=== PATIENT | female | born 1940 | race Caucasian/White ===

== ENCOUNTER 2023-10-02 20:48 | Emergency (ER) | payer MEDICARE, OTHER, SELFPAY ==
[2023-10-02 20:53] VITALS: BP 161/92; PULSE 79; TEMP 36.7; O2SAT 96; BMI 23.4
--- NOTE | 2023-10-02 21:37 | ED_ITS ---
HPI HPI - Extremity Injury (Lower) General Chief Complaint: Extremity Injury, Lower Stated Complaint: LOWER EXTREMITY INJURY Time Seen by Provider: 10/02/23 21:32 Source: patient Mode of arrival: Wheelchair Limitations: no limitations History of Present Illness HPI Narrative: patient presents complaining of right foot pain. points to red spot on the dorsum of her foot. States it was swollen and has a burning pain. Increased pain with bearing weight . Denies injury.No fever Related Data Allergies Allergy/AdvReac Type Severity Reaction Status Date / Time latex Allergy Mild Hives Verified 10/03/23 00:08 Opioid HPI Opioid Management Most Recent Pain and Opioid Data: Last Pain Scale 6 10/02/23 21:22 Review of Systems ROS Status of ROS 10 or more systems reviewed and unremark able except as noted in history and below Exam Constitutional Vital Signs, click to edit/add: Last Vital Signs Temp 98.1 F 10/02/23 20:53 Pulse 79 10/02/23 20:53 Resp 18 10/02/23 20:53 BP 161/92 H 10/02/23 20:53 Pulse Ox 96 10/02/23 20:53 O2 Del Method Room Air 10/02/23 20:53 Common normals: no apparent distress, average body habitus, oriented x3 and healthy appearing HENMT Common normals: normocephalic Eye Common normals: EOMs intact bilaterally and conjunctivae normal Chest Common normals: inspection of chest normal Respiratory Common normals: normal respiratory effort, no retractions, no use of accessory muscles and clear to auscultation bilaterally Cardio Common normals: regular rate, regular rhythm, S1 normal heart sound and S2 normal heart sound Extremity Common normals: full ROM and normal capillary refill Other: 2cm erythematous macula lesion dorsum right foot. No swelling but is focally tender. overlying 1st distal metacarpal. also has tenderness of the adjoining medial aspect of the foot. again now swelling or even redness appreciated Neuro Common normals: oriented x3 Psych Appearance: grossly normal Course Vital Signs Vital signs: Vital Signs Temperature 98.1 F 10/02/23 20:53 Pulse Rate 79 10/02/23 20:53 Respiratory Rate 18 10/02/23 20:53 Blood Pressure 161/92 H 10/02/23 20:53 Pulse Oximetry 96 10/02/23 20:53 Oxygen Delivery Method Room Air 10/02/23 20:53 Temperature 98.1 F 10/02/23 20:53 Pulse Rate 79 10/02/23 20:53 Respiratory Rate 18 10/02/23 20:53 Blood Pressure 161/92 H 10/02/23 20:53 Pulse Oximetry 96 10/02/23 20:53 Oxygen Delivery Method Room Air 10/02/23 20:53 MDM - Extremity Injury (Lower) MDM Narrative Medical decision making narrative: patient presents with acute onset of burning pain and focal area of redness on her right foot. patient recalls no injury. site is tender without any swelling. xray of the foot without acute findings . treated as a bug bite reaction with steroid and the discomfort and redness have improved. Discharged home with prednisone and advised to followup with her doctor for recheck Imaging Data Chest x-ray: Radiologist's impression: ITS Impressions Foot X-Ray 10/02/23 21:43 IMPRESSION: Osteopenia and degenerative changes. No acute bony abnormality. Electronically authenticated by: DEJA VAZQUEZ Date: 10/02/2023 23:00 Discharge Plan Discharge Stand Alone Forms: Portal Instructions Chief Complaint: Extremity Injury, Lower Clinical Impression: Bug bite Patient Disposition: Home, Self-Care Print Language: Italian Instructions: Insect Bite or Sting (ED) Additional Instructions: follow up with your doctor next week Referrals: Physician,Non-Staff, MD [Primary Care Provider] - 1 week
--- NOTE | 2023-10-02 21:43 | XR_ITS ---
The [address] [address] Patient Name: KEVIN MERINO MRN: [id number] date: 1940 Sex: F Assigned Patient Location: ER Current Patient Location: ER Accession/Order Number: [id number] Exam Date: 10/02/2023 21:59 Report Date: 10/02/2023 23:00 At the request of: BHARATH DYE Procedure: XR foot RT min 3V EXAM: XR foot RT min 3V HISTORY: pain COMPARISON: None. TECHNIQUE: 3 views of the right foot are performed. FINDINGS: The bones are demineralized. There is no acute fracture. There are degenerative changes within the midfoot. There is a plantar calcaneal spur. There is calcification of the plantar fascia. XR/XR foot RT min 3V IMPRESSION: Osteopenia and degenerative changes. No acute bony abnormality. Electronically authenticated by: DEJA VAZQUEZ Date: 10/02/2023 23:00
[2023-10-02] MEDS: METHYLPREDNISOLONE SOD SUCC PF 125 MG/2 ML VIAL IVP (22:01)
[2023-10-02 22:18] LABS: Basophils Absolute Auto 0.1 10^3/uL (0.0-0.1); Basophils Percent Auto 0.9 % (0.2-2.0); Eosinophils Absolute Auto 0.3 10^3/uL (0.0-0.7); Eosinophils Percent Auto 4.5 % (0.9-7.0); Hematocrit 43.1 % (36.0-48.0); Hemoglobin 13.9 g/dL (12.0-16.0); Immature Granulocytes Abs Auto 0.02 10^3/uL (0.00-0.03); Immature Granulocytes Pct Auto 0.3 % (0.0-0.5); Lymphocytes Percent Auto 26.4 % (20.5-60.0); Mean Corpuscular HGB Conc 32.3 g/dL (29.9-35.2); Mean Corpuscular Hemoglobin 29.5 pg (26.7-34.0); Mean Corpuscular Volume 91.5 fL (81.0-99.0); Mean Platelet Volume 11.2 fL (9.5-13.5); Monocytes Absolute Auto 0.8 10^3/uL (0.3-0.8); Monocytes Percent Auto 10.7 % (1.7-12.0); Neutrophils Absolute Auto 4.2 10^3/uL (1.4-6.5); Neutrophils Percent Auto 57.2 % (43.0-75.0); Platelet Count 294 10^3/uL (150-450); Red Blood Count 4.71 10^6/uL (4.20-5.40); Red Cell Distribution Width 13.5 % (11.0-15.0); White Blood Count 7.4 10^3/uL (4.0-11.0)
[2023-10-02 22:30] LABS: Erythrocyte Sedimentation Rate 24 mm/hr (<=30)
[2023-10-02 23:31] LABS: Anion Gap 12.1; BUN Creatinine Ratio 21.2; C Reactive Protein <0.50 mg/dL (<=0.50); Calcium 9.7 mg/dL (8.5-10.1); Carbon Dioxide 27.6 mmol/L (21.0-32.0); Chloride 106 mmol/L (98-107); Estimated GFR (African America >60 (>=60); Estimated GFR (Non-African Ame >60 (>=60); Glucose 98 mg/dL (74-106); Potassium 3.7 mmol/L (3.5-5.1); Sodium 142 mmol/L (136-145)
[2023-10-03] MEDS: PREDNISONE 20 MG TABLET 40 MG PO (00:38)
== END 2023-10-03 00:50 | disposition home or self-care (01) ==
PROVIDERS: Emergency Provider Internal Medicine
DX: S90.861A Insect bite (nonvenomous), right foot, initial encounter (principal); W57.XXXA Bitten or stung by nonvenomous insect and other nonvenomous arthropods, initial encounter
CPT/HCPCS: 36415; 73630; 80048; 85025; 85652; 86140; 96374; 99284; J2919; J7512